=== PATIENT | female | born 2005 | race Two or more races ===

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

== ENCOUNTER → 2023-02-02 | Emergency (ER) | payer OTHER ==
[~2023-02-02] VITALS: Ht 149.9 cm; Wt 48.1 kg
[2023-02-02 19:07] VITALS: BP 117/65; PULSE 83; RESP 18; TEMP 97.5; O2SAT 100
[2023-02-02 19:50] VITALS: BP 117/65; PULSE 83; RESP 18; TEMP 97.5; O2SAT 100
== END | disposition home or self-care (01) ==
LOC: MED 18:30
DX: S81.811A Laceration without foreign body, right lower leg, initial encounter (principal); W25.XXXA Contact with sharp glass, initial encounter; Y93.89 Activity, other specified; Y92.89 Other specified places as the place of occurrence of the external cause; Y99.8 Other external cause status
CPT/HCPCS: 12001; 90471; 90715; 99283